=== PATIENT | male | born 1960 | race African-American/Black ===

== ENCOUNTER 2016-10-17 14:04 | Emergency (ER) | payer OTHER ==
[~2016-10-17] VITALS: Ht 177.8 cm; Wt 146.2 kg
[~2016-10-17 14:04] MED LIST: ABILIFY5 MG PO; AMOXICILLIN500 M1 PO; ANAPROX DS550 M1 PO; CARAFATE1 GM PO; DESYREL100 MG PO; HYDROCHLOROTHIA25 MG PO; HYDROXYZINE PAM25 MG PO; INDOCIN25 MG PO; LIDOCAINE20 MG/1 M5 PO; LISINOPRIL20 MG PO; MOBIC15 MG PO; MOTRIN600 MG PO; MOTRIN800 MG PO; OXYCODONE HCL5 MG PO; OXYCODONE-APAP1 EACH PO; PEN-VEE K,VEET500 MG PO; PERCOCET 5/31 TABLET PO; POLYETHYLENE G255 GM PO; PREDNISONE20 MG PO; PRILOSEC20 MG PO; PRINIVIL10 MG PO; TESSALON PERLE100 MG PO; ULTRAM50 MG PO; VENTOLIN HFA18 GM IH; WELLBUTRIN XL300 MG PO; XANAX0.5 MG PO
[2016-10-17] MEDS ORDERED: TRAZODONE HCL50 MG PO (16:25)
[2016-10-17] MEDS ORDERED: ZYRTEC10 M2 PO (18:37)
[2016-10-17] MEDS ORDERED: MUCUS ER600 MG PO (18:37)
[2016-10-17] MEDS ORDERED: FLONASE16 G1 BOTH NARES (18:37)
[2016-10-17 18:55] VITALS: BP 110/62
== END 2016-10-17 18:59 | disposition home or self-care (01) ==
LOC: EME 14:04
DX: R59.1 Generalized enlarged lymph nodes (principal); J06.9 Acute upper respiratory infection, unspecified; Z98.818 Other dental procedure status
CPT/HCPCS: 76536; 99281; 99283

== ENCOUNTER 2017-04-06 08:31 | Emergency (ER) | payer OTHER ==
[~2017-04-06] VITALS: Ht 180.3 cm; Wt 143.3 kg
[~2017-04-06 08:31] MED LIST changes: +FLONASE16 G1 BOTH NARES; +MUCUS ER600 MG PO; +TRAZODONE HCL50 MG PO; +ZYRTEC10 M2 PO
[2017-04-06] MEDS ORDERED: MICROZIDE12.5 M1 PO (08:54)
[2017-04-06] MEDS ORDERED: PERCOCET 10/1 TABLET PO (08:54)
[2017-04-06 10:08] VITALS: BP 134/79
== END 2017-04-06 10:08 | disposition home or self-care (01) ==
LOC: EME 08:31
DX: S39.011A Strain of muscle, fascia and tendon of abdomen, initial encounter (principal); X50.9XXA Other and unspecified overexertion or strenuous movements or postures, initial encounter; M25.562 Pain in left knee; M25.572 Pain in left ankle and joints of left foot; F17.200 Nicotine dependence, unspecified, uncomplicated; Z71.6 Tobacco abuse counseling; I10 Essential (primary) hypertension
CPT/HCPCS: 99281; 99284

== ENCOUNTER 2017-04-15 11:07 | Emergency (ER) | payer OTHER ==
[~2017-04-15] VITALS: Ht 180.3 cm; Wt 143.6 kg
[~2017-04-15 11:07] MED LIST changes: +MICROZIDE12.5 M1 PO; +PERCOCET 10/1 TABLET PO
[2017-04-15 11:46] LABS: EOSINOPHIL (%) 0.5 % (0-5); EOSINOPHIL COUNT 0.1 K/uL (0-0.3); HEMATOCRIT 43.6 % (38.0-50.0); IMMATURE GRANULOCYTE (%) 0.6 % (0.0-0.7); IMMATURE GRANULOCYTE COUNT 0.1 K/uL; INSTRUMENT ABS NEUTROPHIL CT 7.2 K/uL; LYMPHOCYTE COUNT 2.2 K/uL (1.0-2.8); MCH 30.5 PG (29.0-34.0); MCHC 34.4 G/DL (30.0-36.0); MCV 88.6 FL (86-99); MEAN PLAT.VOLUME 10.4 uM^3 (9.0-12.4); MONOCYTE (%) 4.6 % (3-12); MONOCYTE COUNT 0.5 K/uL (0-0.8); NEUTROPHIL (%) 72.5 % (45-76); NEUTROPHIL COUNT 7.2 K/uL (1.8-6.4); PLATELET COUNT 164 K/uL (156-360); RBC DIS.WIDTH-CV 14.3 % (11.8-14.6); RBC DIS.WIDTH-SD 45.8 % (39-53); RED BLOOD COUNT 4.92 M/uL (4.00-5.50)
[2017-04-15 12:01] LABS: CHLORIDE 103 mEq/L (99-109); POTASSIUM 4.1 mEq/L (3.7-5.4); SODIUM 137 mEq/L (136-147)
[2017-04-15 12:03] LABS: GLUCOSE 108 mg/dL (70-99)
[2017-04-15 12:04] LABS: ANION GAP 10 MEQ/L (2-14)
[2017-04-15 12:05] LABS: TOTAL BILIRUBIN 0.8 mg/dL (0.0-1.0)
[2017-04-15 12:07] LABS: ALKALINE PHOSPHATASE 74 IU/L (3-129); GFR ESTIMATE (CALCULATED) > 59 mL/min/
[2017-04-15 12:08] LABS: UREA NITROGEN (BUN) 11 mg/dL (9-23)
[2017-04-15 12:10] LABS: LIPASE 14 U/L (1.0-51.0)
[2017-04-15] MEDS ORDERED: TYLENOL WITH C1 EACH PO (14:23)
[2017-04-15] MEDS ORDERED: ZOFRAN4 MG PO (14:23)
[2017-04-15 15:06] VITALS: BP 111/76
== END 2017-04-15 15:08 | disposition home or self-care (01) ==
LOC: EME 11:07
PROVIDERS: Emergency Medicine
DX: R51 Headache (principal); R10.9 Unspecified abdominal pain; I10 Essential (primary) hypertension; F17.200 Nicotine dependence, unspecified, uncomplicated
CPT/HCPCS: 70450; 74177; 80053; 83690; 85025; 99281; 99284; J2270; J2405; J7030

== ENCOUNTER 2017-06-04 02:45 | Emergency (ER) | payer OTHER ==
[~2017-06-04] VITALS: Ht 180.3 cm; Wt 138.9 kg
[~2017-06-04 02:45] MED LIST changes: +TYLENOL WITH C1 EACH PO; +ZOFRAN4 MG PO
[2017-06-04 03:33] LABS: HEMATOCRIT 43.5 % (38.0-50.0); MCHC 33.3 G/DL (30.0-36.0); MCV 90.1 FL (86-99); MEAN PLAT.VOLUME 10.5 uM^3 (9.0-12.4); PLATELET COUNT 147 K/uL (156-360); RBC DIS.WIDTH-CV 13.9 % (11.8-14.6); RBC DIS.WIDTH-SD 46.3 % (39-53); RED BLOOD COUNT 4.83 M/uL (4.00-5.50); WHITE BLOOD COUNT 10.7 K/uL (4.1-10.2)
[2017-06-04 03:44] LABS: CHLORIDE 106 mEq/L (99-109); POTASSIUM 4.3 mEq/L (3.7-5.4); SODIUM 138 mEq/L (136-147)
[2017-06-04 03:46] LABS: GLUCOSE 100 mg/dL (70-99)
[2017-06-04 03:48] LABS: ANION GAP 11 MEQ/L (2-14)
[2017-06-04 03:49] LABS: SERUM ETHYL ALCOHOL < 10 mg/dL
[2017-06-04 03:50] LABS: GFR ESTIMATE (CALCULATED) > 59 mL/min/
[2017-06-04 03:51] LABS: UREA NITROGEN (BUN) 15 mg/dL (9-23)
[2017-06-04 09:26] LABS: COCAINE PRESUMPTIVE POSITIVE (150 ng/mL); PHENCYCLIDINE NEGATIVE (25 ng/mL); THC CANNABINOIDS NEGATIVE (50 ng/mL)
[2017-06-04 09:27] LABS: ADD MEDTOX COMMENT Y; AMPHETAMINE NEGATIVE (500 ng/mL); BARBITURATES NEGATIVE (200 ng/mL); BENZODIAZEPINES NEGATIVE (150 ng/mL); INTERNAL CONTROLS VALID? YES; METHADONE NEGATIVE (200 ng/mL); METHAMPHETAMINE NEGATIVE (500 ng/mL); OPIATES (MORPHINE) NEGATIVE (100 ng/mL); OXYCODONE NEGATIVE (100 ng/mL); PROPOXYPHENE NEGATIVE (300 ng/mL); TRICYCLIC ANTIDEPRESSANTS NEGATIVE (300 ng/mL)
[2017-06-04 17:37] VITALS: BP 128/88
== END 2017-06-04 17:39 ==
LOC: EME 02:45
DX: F33.9 Major depressive disorder, recurrent, unspecified (principal); R45.851 Suicidal ideations; F14.90 Cocaine use, unspecified, uncomplicated; I10 Essential (primary) hypertension; B18.2 Chronic viral hepatitis C; F17.200 Nicotine dependence, unspecified, uncomplicated
CPT/HCPCS: 80048; 84999; 85027; 90837; 99281; 99285; G0480

== ENCOUNTER 2017-08-27 09:34 | Emergency (ER) | payer OTHER ==
[~2017-08-27] VITALS: Ht 177.8 cm; Wt 134.5 kg
[2017-08-27 10:35] LABS: HEMATOCRIT 44.3 % (38.0-50.0); MCH 30.6 PG (29.0-34.0); MCHC 34.1 G/DL (30.0-36.0); MCV 89.9 FL (86-99); MEAN PLAT.VOLUME 10.1 uM^3 (9.0-12.4); PLATELET COUNT 179 K/uL (156-360); RBC DIS.WIDTH-CV 14.2 % (11.8-14.6); RBC DIS.WIDTH-SD 46.5 % (39-53); RED BLOOD COUNT 4.93 M/uL (4.00-5.50); WHITE BLOOD COUNT 9.1 K/uL (4.1-10.2)
[2017-08-27 10:47] LABS: CHLORIDE 106 mEq/L (99-109); POTASSIUM 4.6 mEq/L (3.7-5.4); SODIUM 139 mEq/L (136-147)
[2017-08-27 10:49] LABS: GLUCOSE 102 mg/dL (70-99)
[2017-08-27 10:50] LABS: ANION GAP 10 MEQ/L (2-14)
[2017-08-27 10:52] LABS: GFR ESTIMATE (CALCULATED) > 59 mL/min/ (58.99-99999)
[2017-08-27 10:53] LABS: UREA NITROGEN (BUN) 12 mg/dL (9-23)
[2017-08-27 10:57] LABS: TROP-I INTERPRETATION NEGATIVE; TROPONIN-I < 0.01 ng/mL (0.0-0.30)
[2017-08-27] MEDS ORDERED: DOXYCYCLINE MO100 MG PO (12:20)
[2017-08-27] MEDS ORDERED: TESSALON PERLE100 MG PO (12:20)
[2017-08-27 12:55] VITALS: BP 148/92
== END 2017-08-27 13:01 | disposition home or self-care (01) ==
LOC: EME 09:34
DX: J18.9 Pneumonia, unspecified organism (principal); J98.01 Acute bronchospasm; I10 Essential (primary) hypertension; F17.200 Nicotine dependence, unspecified, uncomplicated
CPT/HCPCS: 71020; 80048; 84484; 85027; 93005; 94640; 99281; 99283

== ENCOUNTER 2017-09-14 02:59 | Inpatient (IN) | payer OTHER ==
[~2017-09-14] VITALS: Ht 177.8 cm; Wt 134.9 kg
[~2017-09-14 02:59] MED LIST changes: +DOXYCYCLINE MO100 MG PO
[2017-09-14 03:46] LABS: HEMOGLOBIN 15.7 G/DL (12.5-16.6); MCH 30.4 PG (29.0-34.0); MCHC 33.4 G/DL (30.0-36.0); MCV 91.1 FL (86-99); PLATELET COUNT 170 K/uL (156-360); RBC DIS.WIDTH-CV 13.8 % (11.8-14.6); RBC DIS.WIDTH-SD 46.8 % (39-53); RED BLOOD COUNT 5.16 M/uL (4.00-5.50); WHITE BLOOD COUNT 8.9 K/uL (4.1-10.2)
[2017-09-14 03:57] LABS: CHLORIDE 107 mEq/L (99-109); POTASSIUM 4.2 mEq/L (3.7-5.4); SODIUM 143 mEq/L (136-147)
[2017-09-14 03:59] LABS: GLUCOSE 97 mg/dL (70-99)
[2017-09-14 04:03] LABS: CREATININE 1.2 mg/dL (0.6-1.3); GFR ESTIMATE (CALCULATED) > 59 mL/min/ (58.99-99999)
[2017-09-14 04:04] LABS: UREA NITROGEN (BUN) 10 mg/dL (9-23)
[2017-09-14 04:05] LABS: TROP-I INTERPRETATION NEGATIVE; TROPONIN-I < 0.01 ng/mL (0.0-0.30)
[2017-09-14 05:15] LABS: SERUM ETHYL ALCOHOL < 10 mg/dL
[2017-09-14 06:45] LABS: APPEARANCE CLEAR ((CLEAR)); BILIRUBIN NEGATIVE; BLOOD SMALL; COLOR YELLOW ((YELLOW)); GLUCOSE (STRIP) NEGATIVE; KETONES NEGATIVE; LEUKOCYTES NEGATIVE; NITRITE NEGATIVE; PROTEIN (STRIP) 30; SPECIFIC GRAVITY 1.023 (1.000-1.030)
[2017-09-14 06:54] LABS: AMPHETAMINE NEGATIVE (500 ng/mL); BARBITURATES NEGATIVE (200 ng/mL); BENZODIAZEPINES NEGATIVE (150 ng/mL); BUPRENORPHINE NEGATIVE (10 ng/mL); COCAINE PRESUMPTIVE POSITIVE (150 ng/mL); METHADONE NEGATIVE (200 ng/mL); METHAMPHETAMINE NEGATIVE (500 ng/mL); OPIATES (MORPHINE) NEGATIVE (100 ng/mL); OXYCODONE NEGATIVE (100 ng/mL); PHENCYCLIDINE NEGATIVE (25 ng/mL); PROPOXYPHENE NEGATIVE (300 ng/mL); THC CANNABINOIDS PRESUMPTIVE POSITIVE (50 ng/mL); TRICYCLIC ANTIDEPRESSANTS NEGATIVE (300 ng/mL)
[2017-09-14 06:59] LABS: BACTERIA NONE SEEN /HPF; EPITHELIAL CELLS RARE /HPF; MUCUS TRACE /LPF; WHITE BLOOD CELLS 0-5 /HPF (0-5)
[2017-09-14 09:10] VITALS: BP 105/67
[2017-09-14 15:21] VITALS: BP 118/65
[2017-09-15 08:07] VITALS: BP 136/79
[2017-09-15 15:40] VITALS: BP 123/75
[2017-09-16 07:51] VITALS: BP 159/89
[2017-09-16 15:22] VITALS: BP 142/98
[2017-09-17 07:46] VITALS: BP 152/91
[2017-09-17] MEDS ORDERED: Thiamine,Vitamin B1 PO (08:39)
[2017-09-17] MEDS ORDERED: FOLIC ACID1 MG PO (08:39)
[2017-09-17] MEDS ORDERED: DOXYCYCLINE HY100 M3 PO (08:39)
[2017-09-17] MEDS ORDERED: WELLBUTRIN SR100 MG PO (08:40)
== END 2017-09-17 11:20 | disposition other institution (70) | DRG 897 ==
LOC: EME 02:59 → 1WEST 06:10 → EDOF 06:10 → 1WEST 06:10 → ENRESERV 08:24 → 1WEST 08:40
DX: F10.239 Alcohol dependence with withdrawal, unspecified (principal); F14.20 Cocaine dependence, uncomplicated; R45.851 Suicidal ideations; Z68.41 Body mass index [BMI] 40.0-44.9, adult; F33.9 Major depressive disorder, recurrent, unspecified; B18.2 Chronic viral hepatitis C; F12.20 Cannabis dependence, uncomplicated; F17.210 Nicotine dependence, cigarettes, uncomplicated; F43.10 Post-traumatic stress disorder, unspecified; F60.9 Personality disorder, unspecified; I10 Essential (primary) hypertension; F41.9 Anxiety disorder, unspecified; E66.9 Obesity, unspecified; R45.4 Irritability and anger; Z60.4 Social exclusion and rejection; Z59.0 Homelessness; Z56.0 Unemployment, unspecified; Z88.5 Allergy status to narcotic agent
CPT/HCPCS: 71046; 80048; 81003; 84484; 84999; 85027; 90839; 93005; 97150 GO; 97165 GO; 99281; 99284; G0480

== ENCOUNTER 2017-10-26 14:47 | Emergency (ER) | payer OTHER ==
[~2017-10-26] VITALS: Ht 177.8 cm; Wt 131.8 kg
[~2017-10-26 14:47] MED LIST changes: +DOXYCYCLINE HY100 M3 PO; +FOLIC ACID1 MG PO; +Thiamine,Vitamin B1 PO; +WELLBUTRIN SR100 MG PO
[2017-10-26] MEDS ORDERED: PERCOCET 5/31 TABLET PO (19:05)
[2017-10-26 19:46] VITALS: BP 130/90
== END 2017-10-26 19:46 | disposition home or self-care (01) ==
LOC: EME 14:47
DX: S89.92XA Unspecified injury of left lower leg, initial encounter (principal); S70.02XA Contusion of left hip, initial encounter; S09.90XA Unspecified injury of head, initial encounter; V49.40XA Driver injured in collision with unspecified motor vehicles in traffic accident, initial encounter; I10 Essential (primary) hypertension; B19.20 Unspecified viral hepatitis C without hepatic coma; F32.9 Major depressive disorder, single episode, unspecified; F41.9 Anxiety disorder, unspecified; F17.200 Nicotine dependence, unspecified, uncomplicated; Z88.5 Allergy status to narcotic agent
CPT/HCPCS: 70450; 72125; 73502; 73564; 99281; 99285

== ENCOUNTER → 2017-11-28 | Outpatient (CLI) | payer MEDICARE, OTHER | END | disposition home or self-care (01) | LOC: CDC 14:37 | DX: Z01.810 Encounter for preprocedural cardiovascular examination (principal); S83.232A Complex tear of medial meniscus, current injury, left knee, initial encounter; M25.562 Pain in left knee; M17.32 Unilateral post-traumatic osteoarthritis, left knee | CPT/HCPCS: 93000 ==

== ENCOUNTER 2017-11-29 16:48 | Emergency (ER) | payer MEDICARE, OTHER ==
[~2017-11-29] VITALS: Ht 177.8 cm; Wt 131.0 kg
[2017-11-29 18:28] LABS: HEMATOCRIT 43.6 % (38.0-50.0); HEMOGLOBIN 14.9 G/DL (12.5-16.6); MCH 30.9 PG (29.0-34.0); MCHC 34.2 G/DL (30.0-36.0); MCV 90.5 FL (86-99); PLATELET COUNT 151 K/uL (156-360); RBC DIS.WIDTH-CV 14.2 % (11.8-14.6); RBC DIS.WIDTH-SD 47.3 % (39-53); RED BLOOD COUNT 4.82 M/uL (4.00-5.50); WHITE BLOOD COUNT 9.3 K/uL (4.1-10.2)
[2017-11-29 18:42] LABS: CHLORIDE 104 mEq/L (99-109); POTASSIUM 3.7 mEq/L (3.7-5.4); SODIUM 138 mEq/L (136-147)
[2017-11-29 18:44] LABS: GLUCOSE 74 mg/dL (70-99); TOTAL PROTEIN 7.7 g/dL (6.4-8.3)
[2017-11-29 18:46] LABS: TOTAL BILIRUBIN 0.8 mg/dL (0.0-1.0)
[2017-11-29 18:47] LABS: ALKALINE PHOSPHATASE 82 IU/L (3-129)
[2017-11-29 18:48] LABS: CREATININE 0.9 mg/dL (0.6-1.3); GFR ESTIMATE (CALCULATED) > 59 mL/min/ (58.99-99999)
[2017-11-29 18:49] LABS: AST (GOT) 23 IU/L (2-34); UREA NITROGEN (BUN) 12 mg/dL (9-23)
[2017-11-29 18:51] LABS: ALT (GPT) 25 IU/L (3-49)
[2017-11-29 19:40] LABS: LIPASE 17 U/L (1.0-51.0)
[2017-11-29 19:47] LABS: TROP-I INTERPRETATION NEGATIVE; TROPONIN-I < 0.01 ng/mL (0.0-0.30)
[2017-11-29 20:08] LABS: APPEARANCE CLEAR ((CLEAR)); BILIRUBIN NEGATIVE; BLOOD NEGATIVE; COLOR YELLOW ((YELLOW)); GLUCOSE (STRIP) NEGATIVE; KETONES NEGATIVE; LEUKOCYTES NEGATIVE; NITRITE NEGATIVE; PROTEIN (STRIP) 30; UCUL ADDED? NO
[2017-11-29 21:32] VITALS: BP 128/92
== END 2017-11-29 21:36 | disposition home or self-care (01) ==
LOC: EME 16:48
PROVIDERS: Emergency Medicine
DX: R10.84 Generalized abdominal pain (principal); J11.1 Influenza due to unidentified influenza virus with other respiratory manifestations; K57.30 Diverticulosis of large intestine without perforation or abscess without bleeding; B18.2 Chronic viral hepatitis C; I10 Essential (primary) hypertension; F32.9 Major depressive disorder, single episode, unspecified; F41.9 Anxiety disorder, unspecified; F17.200 Nicotine dependence, unspecified, uncomplicated
CPT/HCPCS: 71046; 74177; 80053; 81003; 83605; 83690; 84484; 85027; 87502; 93005; 99281; 99285; J0500; J0780; J1200; J7030

== ENCOUNTER 2018-01-08 07:23 | Emergency (ER) | payer OTHER ==
[~2018-01-08] VITALS: Ht 177.8 cm; Wt 132.2 kg
[2018-01-08 08:21] LABS: HEMATOCRIT 40.6 % (38.0-50.0); MCH 31.5 PG (29.0-34.0); MCHC 34.5 G/DL (30.0-36.0); MCV 91.4 FL (86-99); PLATELET COUNT 149 K/uL (156-360); RBC DIS.WIDTH-CV 13.3 % (11.8-14.6); RBC DIS.WIDTH-SD 45.2 % (39-53); RED BLOOD COUNT 4.44 M/uL (4.00-5.50)
[2018-01-08 08:31] LABS: CHLORIDE 100 mEq/L (99-109)
[2018-01-08 08:32] LABS: SODIUM 135 mEq/L (136-147)
[2018-01-08 08:34] LABS: GLUCOSE 97 mg/dL (70-99); TOTAL PROTEIN 7.2 g/dL (6.4-8.3)
[2018-01-08 08:36] LABS: TOTAL BILIRUBIN 1.2 mg/dL (0.0-1.0)
[2018-01-08 08:37] LABS: ALKALINE PHOSPHATASE 74 IU/L (3-129)
[2018-01-08 08:38] LABS: GFR ESTIMATE (CALCULATED) > 59 mL/min/ (58.99-99999)
[2018-01-08 08:39] LABS: AST (GOT) 11 IU/L (2-34); UREA NITROGEN (BUN) 10 mg/dL (9-23)
[2018-01-08 08:40] LABS: ALT (GPT) 9 IU/L (3-49)
[2018-01-08 08:41] LABS: LIPASE 18 U/L (1.0-51.0)
[2018-01-08 08:48] LABS: APPEARANCE CLEAR ((CLEAR)); BILIRUBIN NEGATIVE; BLOOD NEGATIVE; COLOR YELLOW ((YELLOW)); GLUCOSE (STRIP) NEGATIVE; KETONES NEGATIVE; LEUKOCYTES NEGATIVE; NITRITE NEGATIVE; PROTEIN (STRIP) NEGATIVE; SPECIFIC GRAVITY 1.012 (1.000-1.030); UCUL ADDED? NO; UROBILINOGEN 0.2 MG/DL (0.2-1.0)
[2018-01-08] MEDS ORDERED: LEVSIN0.125 MG PO (13:55)
[2018-01-08 14:09] VITALS: BP 147/92
== END 2018-01-08 14:19 | disposition home or self-care (01) ==
LOC: EME 07:23
PROVIDERS: Nurse Practitioner Family
DX: R10.11 Right upper quadrant pain (principal); K74.60 Unspecified cirrhosis of liver; F17.200 Nicotine dependence, unspecified, uncomplicated; B18.2 Chronic viral hepatitis C; J45.909 Unspecified asthma, uncomplicated; I10 Essential (primary) hypertension; F41.9 Anxiety disorder, unspecified; F32.9 Major depressive disorder, single episode, unspecified
CPT/HCPCS: 71046; 74177; 76705; 78582; 80053; 81003; 83690; 85027; 85379; 99281; 99285; A9540; A9567; J7120

== ENCOUNTER 2018-01-28 08:32 | Emergency (ER) | payer OTHER ==
[~2018-01-28] VITALS: Ht 177.8 cm; Wt 133.6 kg
[~2018-01-28 08:32] MED LIST changes: +LEVSIN0.125 MG PO
[2018-01-28 08:59] LABS: HEMATOCRIT 41.2 % (38.0-50.0); HEMOGLOBIN 14.2 G/DL (12.5-16.6); MCH 31.1 PG (29.0-34.0); MCHC 34.5 G/DL (30.0-36.0); MCV 90.4 FL (86-99); PLATELET COUNT 135 K/uL (156-360); RBC DIS.WIDTH-CV 13.5 % (11.8-14.6); RBC DIS.WIDTH-SD 44.6 % (39-53); RED BLOOD COUNT 4.56 M/uL (4.00-5.50); WHITE BLOOD COUNT 8.7 K/uL (4.1-10.2)
[2018-01-28 09:11] LABS: CHLORIDE 100 mEq/L (99-109); SODIUM 133 mEq/L (136-147)
[2018-01-28 09:13] LABS: GLUCOSE 103 mg/dL (70-99)
[2018-01-28 09:17] LABS: CREATININE 0.9 mg/dL (0.6-1.3); GFR ESTIMATE (CALCULATED) > 59 mL/min/ (58.99-99999)
[2018-01-28 09:18] LABS: UREA NITROGEN (BUN) 11 mg/dL (9-23)
[2018-01-28 09:22] LABS: TROP-I INTERPRETATION NEGATIVE; TROPONIN-I < 0.01 ng/mL (0.0-0.30)
[2018-01-28] MEDS ORDERED: PREDNISONE20 MG PO (09:55)
[2018-01-28] MEDS ORDERED: PHENERGAN-CODE120 ML PO (09:55)
[2018-01-28 10:15] LABS: MONOSPOT (MONONUCLEOSIS SEROL) NEGATIVE
[2018-01-28] MEDS ORDERED: PROVENTIL HFA6.7 GM IH (10:15)
[2018-01-28 10:36] VITALS: BP 130/77
== END 2018-01-28 10:36 | disposition home or self-care (01) ==
LOC: EME 08:32
PROVIDERS: Emergency Medicine
DX: R07.89 Other chest pain (principal); J06.9 Acute upper respiratory infection, unspecified; I10 Essential (primary) hypertension; F17.200 Nicotine dependence, unspecified, uncomplicated
CPT/HCPCS: 71045; 80048; 83880; 84484; 85027; 86308; 87502; 93005; 99281; 99285; J7512